=== PATIENT | male | born 1975 | race Two or more races ===

== ENCOUNTER 2018-01-31 14:49 | Emergency (ER) | payer SELFPAY ==
[~2018-01-31] VITALS: Ht 160 cm; Wt 65.3 kg
[2018-01-31 14:50] VITALS: BP 125/78
[2018-01-31] MEDS ORDERED: LIDOCAINE 1% (LOCAL ANESTH.) PF 5ml SDV IJ ONE (17:00)
== END 2018-01-31 17:36 | disposition home or self-care (01) ==
LOC: ER 14:49
DX: S61.210A Laceration without foreign body of right index finger without damage to nail, initial encounter (principal); S61.214A Laceration without foreign body of right ring finger without damage to nail, initial encounter; W26.9XXA Contact with unspecified sharp object(s), initial encounter; Y93.89 Activity, other specified; Y99.8 Other external cause status; Y92.89 Other specified places as the place of occurrence of the external cause
CPT/HCPCS: 12002; 73130

== ENCOUNTER 2018-02-03 11:18 | Emergency (ER) | payer SELFPAY ==
[~2018-02-03] VITALS: Ht 157.5 cm; Wt 65.3 kg
[2018-02-03 11:41] VITALS: BP 123/77
[2018-02-03] MEDS ORDERED: BACITRACIN TOP OINT 1 UD PKG TOP ONE (15:45)
== END 2018-02-03 16:22 | disposition home or self-care (01) ==
LOC: ER 11:18
DX: S61.211D Laceration without foreign body of left index finger without damage to nail, subsequent encounter (principal); S61.213D Laceration without foreign body of left middle finger without damage to nail, subsequent encounter; S61.215D Laceration without foreign body of left ring finger without damage to nail, subsequent encounter; X58.XXXD Exposure to other specified factors, subsequent encounter